=== PATIENT | male | born 1975 | race Hispanic/Latino ===

== ENCOUNTER 2019-05-01 00:26 | Emergency (ER) | payer OTHER ==
[~2019-05-01 00:26] MED LIST: ASPI-1197 PO; METO25TA6 PO
[2019-05-01] MEDS ORDERED: PROCHLORPERAZINE EDISYLATE 10 MG/2 ML VIAL ONE (03:51)
[2019-05-01] MEDS ORDERED: KETOROLAC TROMETHAMINE 60 MG/2 ML VIAL ONE (03:51)
== END 2019-05-01 05:29 | disposition home or self-care (01) ==
LOC: EDH 00:26
DX: R51 Headache (principal)
CPT/HCPCS: 70450; 96372 ×2; 99284; J0780; J1885

== ENCOUNTER 2023-08-25 03:35 | Emergency (ER) | payer OTHER ==
[~2023-08-25] VITALS: Ht 162.6 cm; Wt 84.4 kg
[2023-08-25] MEDS: IBUPROFEN 800 MG TAB PO ONE (05:01)
[2023-08-25] MEDS: CYCLOBENZAPRINE HCL 10 MG TABLET PO ONE (05:01)
[2023-08-25 05:02] LABS: APPEARANCE,URINE CLEAR (CLEAR); BILIRUBIN,URINE NEGATIVE (NEGATIVE); COLOR,URINE YELLOW (YELLOW); GLUCOSE, URINE (UA) >=1000 mg/dL (NEGATIVE); KETONES,URINE 10 mg/dL (NEGATIVE); LEUKOCYTE ESTERASE ,URINE NEGATIVE Leu/uL (NEGATIVE); NITRATE,URINE NEGATIVE (NEGATIVE); OCCULT BLOOD,URINE NEGATIVE (NEGATIVE); PROTEIN,URINE 50 mg/dL (NEGATIVE)
[2023-08-25 05:04] LABS: ADD UA MICROSCOPIC YES
[2023-08-25 05:06] LABS: MUCUS,URINE FEW LPF (None Seen); RBC,URINE 0-1 /HPF (0-1); SQUAMOUS EPITHELIAL CELL,UR RARE /HPF (0-2)
[2023-08-25 05:30] VITALS: BP 136/62; PULSE 62; RESP 18; O2SAT 97
[2023-08-25] MEDS ORDERED: CYCL10TA16 PO (06:42)
== END 2023-08-25 06:50 | disposition home or self-care (01) ==
LOC: EDH 03:35
DX: M54.50 Low back pain, unspecified (principal); E11.9 Type 2 diabetes mellitus without complications; E78.00 Pure hypercholesterolemia, unspecified; Z79.82 Long term (current) use of aspirin; Z79.899 Other long term (current) drug therapy
CPT/HCPCS: 72131; 72192; 81001; 87086